=== PATIENT | female | born 1935 | race Caucasian/White ===

== ENCOUNTER 2017-10-30 08:44 | Emergency (ER) | payer MEDICARE, OTHER ==
[2017-10-30] MEDS ORDERED: Aspirin 81 MG Tab.Chew PO ONE (08:53)
[2017-10-30] MEDS: Nitroglycerin 0.4 MG Tab.SL SL ONE ×2 (09:23→09:35)
--- NOTE | 2017-10-30 09:32 | EDM.PDOC ---
ED HPI GENERAL MEDICAL PROBLEM - General Chief Complaint: Chest Pain Stated Complaint: CHEST PAIN Time Seen by Provider: 10/30/17 09:29 Source of Information: Reports: Patient History Limitations: Reports: No Limitations - History of Present Illness INITIAL COMMENTS - FREE TEXT/NARRATIVE: pt arrived with chest pain. Starting the epigastric area and extending into the chest. She came to [facility] to be with her . She does get alot of anxiety when she is in a hospital setting. She developed the chest pain after she got here and it has gotten progressively worse. Onset: Today, Sudden Duration: Hour(s): Location: Reports: Chest Associated Symptoms: Reports: Chest Pain, Other (pt did not atke her omeprazole at this point. ) Anterior Chest Pain Score (Numeric/FACES): 5 - Related Data Allergies Allergy/AdvReac Type Severity Reaction Status Date / Time metronidazole Allergy Cannot Verified 10/30/17 10:06 Remember Sulfa (Sulfonamide Allergy Cannot Verified 10/30/17 10:06 Antibiotics) Remember Home Meds: Home Meds Allopurinol [Zyloprim] 100 mg PO DAILY 11/23/13 [History] Aspirin [Adult Low Dose Aspirin EC] 1 tab PO DAILY 11/23/13 [History] Azeem Cit/D3/K/Mag Ox/Stron/Bor [Theracal D2000] 1 each PO BID 11/23/13 [History] Cholecalciferol (Vitamin D3) [Vitamin D3] 400 unit PO DAILY 11/23/13 [History] Ciclopirox [Loprox 0.77% Crm] 1 applicful TOP ASDIRECTED 11/23/13 [History] Estradiol [Vivelle-Dot] 0.75 mg TOP DAILY 11/23/13 [History] Estrogens, Conjugated [Premarin Vaginal] 1 applic VAG ASDIRECTED 11/23/13 [ History] Lidocaine 0.5% [Xylocaine-MPF 0.5%] 50 film TOP BID 11/23/13 [History] Lisinopril [Prinivil] 10 mg PO DAILY 11/23/13 [History] Multivitamin with Minerals [Multiple Vitamin] 1 tab PO DAILY 11/23/13 [History] Nystatin [Nystatin Ointment] 15 gm TOP DAILY 11/23/13 [History] [place]-3 Fatty Acids [[place]-3] 1 tab PO DAILY 11/23/13 [History] Omeprazole 20 mg PO DAILY 11/23/13 [History] Oxybutynin Chloride [Ditropan Xl] 5 mg PO BEDTIME 11/23/13 [History] Simvastatin [Zocor] 40 mg PO BEDTIME 11/23/13 [History] Triamcinolone Acetonide [Kenalog 0.1% Crm] 1 applic TOP BID 11/23/13 [History] metroNIDAZOLE [metroNIDAZOLE 0.75% Cream] 1 applic TOP DAILY 11/23/13 [History] Past Medical History HEENT History: Reports: Impaired Vision Cardiovascular History: Reports: High Cholesterol, Hypertension Gastrointestinal History: Reports: Diverticulosis 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: , Spontaneous Musculoskeletal History: Reports: Fracture, Osteoarthritis Other Musculoskeletal History: fx elbow Psychiatric History: Reports: Anxiety Endocrine/Metabolic History: Reports: Other (See Below) Other Endocrine/Metabolic History: partial thyroidectomy Hematologic History: Reports: Blood Transfusion(s) Oncologic (Cancer) History: Reports: Other (See Below) Other Oncologic History: skin ca Dermatologic History: Reports: Other (See Below) Other Dermatologic History: melanoma CA - Infectious Disease History Infectious Disease History: Reports: Chicken Pox, Measles, Mumps - Past Surgical History HEENT Surgical History: Reports: Cataract Surgery GI Surgical History: Reports: Colonoscopy, Other (See Below) Other GI Surgeries/Procedures: sigmoid resection Female Surgical History: Reports: Other (See Below) Other Female Surgeries/Procedures: partial hysterectomy Dermatological Surgical History: Reports: Skin Biopsy Social & Family History - Tobacco Use Smoking Status *Q: Former Smoker Years of Tobacco use: 18 Packs/Tins Daily: 1 Used Tobacco, but Quit: Yes Month Tobacco Last Used: quit 50 years ago Second Hand Smoke Exposure: No - Caffeine Use Caffeine Use: Reports: Coffee, Soda - Alcohol Use Days Per Week of Alcohol Use: 1 Number of Drinks Per Day: 1 Total Drinks Per Week: 1 - Recreational Drug Use Recreational Drug Use: No ED ROS GENERAL - Review of Systems Review Of Systems: See Below Constitutional: Reports: No Symptoms HEENT: Reports: No Symptoms Respiratory: Reports: No Symptoms Cardiovascular: Reports: Chest Pain, Other ( this started this am when her was found to have a facial deviation and she thought he had a stroke. ) Endocrine: Reports: No Symptoms GI/Abdominal: Reports: Other ( Pain in the mid chest area. ) : Reports: No Symptoms Musculoskeletal: Reports: No Symptoms Skin: Reports: No Symptoms Neurological: Reports: No Symptoms Psychiatric: Reports: No Symptoms ED EXAM, GENERAL - Physical Exam Exam: See Below Free Text/Narrative:: pt arrived with chest pain which developed when she found her to have facial deviation nd a possible stroke. The chest pain after arrival at the hosp got progressively worse. Exam Limited By: No Limitations General Appearance: Alert, Anxious, Moderate Distress, Other (pt is holding her chest and does appear quite uncomfortable. pupils are equal and reactive. ) Ears: Normal TMs Nose: Normal Inspection Throat/Mouth: Normal Inspection Head: Atraumatic Neck: Normal Inspection Respiratory/Chest: No Respiratory Distress Cardiovascular: Regular Rate, Rhythm, No Edema, Extra Beats, Other (pt is having frequent ventriculars. ) GI/Abdominal: Soft, Non-Tender Rectal (Female) Exam: Deferred Back Exam: Normal Inspection Extremities: Normal Inspection Neurological: Alert, Oriented, Normal Cognition Course - Vital Signs Last Recorded V/S: Last Vital Signs Temp 35.3 C 10/30/17 08:54 Pulse 86 10/30/17 08:54 Resp 18 10/30/17 08:54 BP 150/91 H 10/30/17 09:23 Pulse Ox - Orders/Labs/Meds Orders: Active Orders 24 hr Category Date Time Status EKG Documentation Completion [RC] ASDIRECTED Care 10/30/17 08:52 Active Chest 1V Frontal [CR] Stat Exams 10/30/17 10:03 Taken Nitroglycerin/D5W [Nitroglycerin 25 MG/D5W 250 ML] Med 10/30/17 10:00 Active 25 mg in 250 ml IV TITRATE EKG 12 Lead [EK] Routine Ther 10/30/17 08:52 Ordered Medication Orders Nitroglycerin/Dextrose (Nitroglycerin 25 Mg/D5w 250 Ml) 25 mg in 250 mls @ 6 mls/hr IV TITRATE ARACELIS; 10 MCG/MIN PRN Reason: Protocol Labs: Laboratory Tests 10/30/17 10/30/17 10/30/17 Range/Units 08:58 08:58 09:46 WBC 6.2 (4.5-11.0) K/uL RBC 4.50 (3.30-5.50) M/uL Hgb 14.1 (12.0-15.0) g/dL Hct 41.9 (36.0-48.0) % MCV 93 (80-98) fL MCH 31 (27-31) pg MCHC 34 (32-36) % Plt Count 214 (150-400) K/uL Neut % (Auto) 59 (36-66) % Lymph % (Auto) 30 (24-44) % [place] % (Auto) 9 H (2-6) % Eos % (Auto) 3 (2-4) % Baso % (Auto) 0 (0-1) % APTT 25.0 L (27.0-36.0) sec Sodium 144 (140-148) mmol/L Potassium 4.3 (3.6-5.2) mmol/L Chloride 108 (100-108) mmol/L Carbon Dioxide 26 (21-32) mmol/L Anion Gap 10.3 (5.0-14.0) mmol/L BUN 20 H (7-18) mg/dL Creatinine 1.3 H (0.6-1.0) mg/dL Est Cr Clr Drug Dosing 25.86 mL/min Estimated GFR (MDRD) 39 L (>60) Glucose 98 (74-106) mg/dL Calcium 9.0 (8.5-10.1) mg/dL Total Bilirubin 0.5 (0.2-1.0) mg/dL AST 30 (15-37) U/L ALT 31 (12-78) U/L Alkaline Phosphatase 64 (46-116) U/L Troponin I 1.034 H* (0.000-0.056) ng/mL Total Protein 7.1 (6.4-8.2) g/dL Albumin 3.5 (3.4-5.0) g/dL Globulin 3.6 H (2.3-3.5) g/dL Albumin/Globulin Ratio 1.0 L (1.2-2.2) Meds: Medications Generic Name Dose Route Start Last Admin Trade Name Freq PRN Reason Stop Dose Admin Nitroglycerin/Dextrose 25 mg in 250 mls @ 6 mls/hr 10/30/17 10:00 Nitroglycerin 25 Mg/D5w 250 Ml IV TITRATE ARACELIS Protocol 10 MCG/MIN Discontinued Medications Generic Name Dose Route Start Last Admin Trade Name Freq PRN Reason Stop Dose Admin Aspirin 324 mg 10/30/17 08:53 10/30/17 09:21 Aspirin PO 10/30/17 08:54 324 mg ONETIME ONE Administration Clopidogrel Bisulfate 600 mg 10/30/17 10:05 10/30/17 10:19 Plavix PO 10/30/17 10:06 600 mg ONETIME ONE Administration Famotidine 20 mg 10/30/17 10:14 Pepcid IVPUSH 10/30/17 10:15 ONETIME ONE Heparin Sodium (Porcine) 4,000 units 10/30/17 09:47 10/30/17 10:14 Heparin Sodium IVPUSH 10/30/17 09:48 4,000 units ONETIME ONE Administration Nitroglycerin 0.4 mg 10/30/17 08:53 10/30/17 09:23 Nitrostat SL 10/30/17 08:54 0.4 mg ONETIME ONE Administration - Re-Assessments/Exams Free Text/Narrative Re-Assessment/Exam: 10/30/17 10:15 pt had a left bundle branch block on th ekg which was present in the past. She was found to have a trop of 1.034. She had a creatnine of 1.3. 10/30/17 10:18 pt will be transfered to cardiology [facility] 10/30/17 10:23 Departure - Departure Time of Disposition: 10:16 Disposition: DC/Tfer to Acute Hospital 02 Reason for Transfer *Q: Primary PCI Indicated Condition: Fair Clinical Impression: Left bundle branch block, Elevated troponin, Chest pain, atypical Referrals: PCP,None [Primary Care Provider] - Forms: ED Department Discharge [facility] - My Orders Last 24 Hours: My Active Orders 10/30/17 08:52 EKG Documentation Completion [RC] ASDIRECTED EKG 12 Lead [EK] Routine 10/30/17 10:00 Nitroglycerin/D5W [Nitroglycerin 25 MG/D5W 250 ML] 25 mg in 250 ml IV TITRATE 10/30/17 10:03 Chest 1V Frontal [CR] Stat - Assessment/Plan Last 24 Hours: My Active Orders 10/30/17 08:52 EKG Documentation Completion [RC] ASDIRECTED EKG 12 Lead [EK] Routine 10/30/17 10:00 Nitroglycerin/D5W [Nitroglycerin 25 MG/D5W 250 ML] 25 mg in 250 ml IV TITRATE 10/30/17 10:03 Chest 1V Frontal [CR] Stat
[2017-10-30] MEDS ORDERED: Heparin Sodium 5,000 Units/ML Vial IVPUSH ONE (09:47)
[2017-10-30] MEDS ORDERED: Nitroglycerin/D5W 25 MG/250 ML BOTTLE IV SCH (10:00)
[2017-10-30] MEDS ORDERED: Clopidogrel 75 MG Tab PO ONE (10:05)
[2017-10-30] MEDS ORDERED: Famotidine 20 MG/2 ML SDV IVPUSH ONE (10:14)
--- NOTE | 2017-10-30 10:44 | CR ---
Heart size within normal limits. No pneumothorax. No focal consolidation. Right epicardial fat-pad.
[2017-10-30 10:46] VITALS: BP 122/76
== END 2017-10-30 11:04 ==
LOC: JP.ED 08:44
DX: I44.7 Left bundle-branch block, unspecified (principal); E78.00 Pure hypercholesterolemia, unspecified; I10 Essential (primary) hypertension; Z88.2 Allergy status to sulfonamides; Z88.8 Allergy status to other drugs, medicaments and biological substances; Z79.82 Long term (current) use of aspirin; Z79.899 Other long term (current) drug therapy
CPT/HCPCS: 36415; 71045; 80053; 84484; 85025; 85730; 93005; 96365; 96375; 99285; A9270; J1644; S0028

== ENCOUNTER 2017-12-09 11:48 | Emergency (ER) | payer MEDICARE, OTHER ==
--- NOTE | 2017-12-09 12:47 | EDM.PDOC ---
ED HPI GENERAL MEDICAL PROBLEM - General Chief Complaint: Cardiovascular Problem Stated Complaint: SHORTNESS OF BREATH Time Seen by Provider: 12/09/17 12:25 Source of Information: Reports: Patient, Family History Limitations: Reports: No Limitations - History of Present Illness INITIAL COMMENTS - FREE TEXT/NARRATIVE: 82-year-old female who had open heart surgery 1 month ago to "fix a hole in her heart", presents with increasing shortness of breath over the past several days. She did have a postoperative follow-up 2 weeks after her surgery and she was doing well, but over the past week has been worsening. She does have an appointment coming up for follow-up at [facility] where she received her surgery, in 2 days. She is having no chest pain, abdominal pain, nausea or vomiting, but is weak and has little activity tolerance without significant shortness of breath. She has also had an increased cough. She has not seen any active bleeding such as emesis or dark stools. She did receive a transfusion while in the hospital. Onset: Gradual (Over the past several days) Severity: Moderate Worsens with: Reports: Other (Activity increases her dyspnea), Movement Associated Symptoms: Reports: Cough, Loss of Appetite, Shortness of Breath, Weakness. Denies: Chest Pain, Fever/Chills, Headaches, Nausea/Vomiting - Related Data Allergies Allergy/AdvReac Type Severity Reaction Status Date / Time metronidazole Allergy Cannot Verified 10/30/17 10:06 Remember Sulfa (Sulfonamide Allergy Cannot Verified 10/30/17 10:06 Antibiotics) Remember Home Meds: Home Meds Allopurinol [Zyloprim] 100 mg PO DAILY 11/23/13 [History] Aspirin [Adult Low Dose Aspirin EC] 1 tab PO DAILY 11/23/13 [History] Azeem Cit/D3/K/Mag Ox/Stron/Bor [Theracal D2000] 1 each PO BID 11/23/13 [History] Cholecalciferol (Vitamin D3) [Vitamin D3] 400 unit PO DAILY 11/23/13 [History] Estradiol [Vivelle-Dot] 0.75 mg TOP DAILY 11/23/13 [History] Lidocaine 0.5% [Xylocaine-MPF 0.5%] 50 film TOP BID 11/23/13 [History] Multivitamin with Minerals [Multiple Vitamin] 1 tab PO DAILY 11/23/13 [History] Nystatin [Nystatin Ointment] 15 gm TOP DAILY 11/23/13 [History] [place]-3 Fatty Acids [[place]-3] 1 tab PO DAILY 11/23/13 [History] Omeprazole 20 mg PO DAILY 11/23/13 [History] Oxybutynin Chloride [Ditropan Xl] 5 mg PO BEDTIME 11/23/13 [History] Simvastatin [Zocor] 40 mg PO BEDTIME 11/23/13 [History] Triamcinolone Acetonide [Kenalog 0.1% Crm] 1 applic TOP BID 11/23/13 [History] metroNIDAZOLE [metroNIDAZOLE 0.75% Cream] 1 applic TOP DAILY 11/23/13 [History] Clopidogrel [Plavix] 75 mg PO DAILY 12/09/17 [History] Colchicine 0.6 mg PO DAILY 12/09/17 [History] Metoprolol Succinate [Toprol XL] 25 mg PO DAILY 12/09/17 [History] Past Medical History HEENT History: Reports: Impaired Vision Cardiovascular History: Reports: Heart Failure, High Cholesterol, Hypertension Gastrointestinal History: Reports: Diverticulosis [employer]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: , Spontaneous Musculoskeletal History: Reports: Fracture, Osteoarthritis Other Musculoskeletal History: fx elbow Psychiatric History: Reports: Anxiety Endocrine/Metabolic History: Reports: Other (See Below) Other Endocrine/Metabolic History: partial thyroidectomy Hematologic History: Reports: Blood Transfusion(s) Oncologic (Cancer) History: Reports: Other (See Below) Other Oncologic History: skin ca Dermatologic History: Reports: Other (See Below) Other Dermatologic History: melanoma CA - Infectious Disease History Infectious Disease History: Reports: Chicken Pox, Measles, Mumps - Past Surgical History HEENT Surgical History: Reports: Cataract Surgery GI Surgical History: Reports: Colonoscopy, Other (See Below) Other GI Surgeries/Procedures: sigmoid resection Female Surgical History: Reports: Other (See Below) Other Female Surgeries/Procedures: partial hysterectomy Dermatological Surgical History: Reports: Skin Biopsy Social & Family History - Tobacco Use Smoking Status *Q: Never Smoker Years of Tobacco use: 18 Packs/Tins Daily: 1 Used Tobacco, but Quit: Yes Month/Year Tobacco Last Used: quit 50 years ago Second Hand Smoke Exposure: No - Caffeine Use Caffeine Use: Reports: None - Alcohol Use Days Per Week of Alcohol Use: 1 Number of Drinks Per Day: 1 Total Drinks Per Week: 1 - Recreational Drug Use Recreational Drug Use: No ED ROS GENERAL - Review of Systems Review Of Systems: See Below Constitutional: Reports: Malaise, Weakness. Denies: Fever, Chills HEENT: Denies: Throat Pain, Vertigo Respiratory: Reports: Shortness of Breath, Cough. Denies: Sputum Cardiovascular: Reports: Lightheadedness. Denies: Chest Pain, Palpitations GI/Abdominal: Denies: Abdominal Pain, Nausea, Vomiting : Reports: No Symptoms Neurological: Reports: Dizziness, Weakness. Denies: Headache Psychiatric: Reports: No Symptoms ED EXAM, GENERAL - Physical Exam Exam: See Below Exam Limited By: No Limitations General Appearance: Alert, No Apparent Distress, Other (Fairly comfortable when sitting still) Eye Exam: Bilateral Eye: Other (Somewhat pale conjunctiva) Head: Atraumatic Respiratory/Chest: No Respiratory Distress, Wheezing (A few scattered expiratory wheezes are heard, with decreased breath sounds in the left base) Cardiovascular: Regular Rate, Rhythm, Tachycardia (Mild tachycardia). No: Extra Beats GI/Abdominal: Soft, Non-Tender Neurological: Alert, Oriented Psychiatric: Normal Affect, Normal Mood Skin Exam: Warm, Dry Course - Vital Signs Last Recorded V/S: Last Vital Signs Temp 98.6 F 12/09/17 12:12 Pulse 94 12/09/17 15:00 Resp 18 12/09/17 15:00 BP 122/81 12/09/17 15:00 Pulse Ox 96 12/09/17 15:00 - Orders/Labs/Meds Orders: Active Orders 24 hr Category Date Time Status US Guidance Thoracentesis NC [US] Stat Exams 12/09/17 13:31 Taken CULTURE BODY FLUID + SMEAR [RM] Routine Lab 12/09/17 14:15 Results CULTURE FUNGAL [MYC] Routine Lab 12/09/17 14:15 Received Labs: Laboratory Tests 12/09/17 12/09/17 12/09/17 Range/Units 12:47 12:47 14:15 WBC 5.2 (4.5-11.0) K/uL RBC 3.28 L (3.30-5.50) M/uL Hgb 9.5 L D (12.0-15.0) g/dL Hct 30.7 L (36.0-48.0) % MCV 94 (80-98) fL MCH 29 (27-31) pg MCHC 31 L (32-36) % Plt Count 198 (150-400) K/uL Neut % (Auto) 71 H (36-66) % Lymph % (Auto) 17 L (24-44) % [place] % (Auto) 11 H (2-6) % Eos % (Auto) 1 L (2-4) % Baso % (Auto) 0 (0-1) % Sodium 139 L (140-148) mmol/L Potassium 4.6 (3.6-5.2) mmol/L Chloride 104 (100-108) mmol/L Carbon Dioxide 25 (21-32) mmol/L Anion Gap 14.6 H (5.0-14.0) mmol/L BUN 20 H (7-18) mg/dL Creatinine 1.4 H (0.6-1.0) mg/dL Est Cr Clr Drug Dosing 23.38 mL/min Estimated GFR (MDRD) 36 L (>60) Glucose 98 (74-106) mg/dL Calcium 8.4 L (8.5-10.1) mg/dL Total Protein (6.4-8.2) g/dL Fluid Type Pleural fluid Fluid pH Fluid WBC /ul Fluid RBC /ul Fluid Diff Comment Fluid Mononuclear Cell % Fl Polymorphonucl Cell % Fluid Glucose 109 mg/dL Fluid LDH 217 IU/L Fluid Amylase 21 U/L 12/09/17 12/09/17 12/09/17 Range/Units 14:15 14:15 14:15 WBC (4.5-11.0) K/uL RBC (3.30-5.50) M/uL Hgb (12.0-15.0) g/dL Hct (36.0-48.0) % MCV (80-98) fL MCH (27-31) pg MCHC (32-36) % Plt Count (150-400) K/uL Neut % (Auto) (36-66) % Lymph % (Auto) (24-44) % [place] % (Auto) (2-6) % Eos % (Auto) (2-4) % Baso % (Auto) (0-1) % Sodium (140-148) mmol/L Potassium (3.6-5.2) mmol/L Chloride (100-108) mmol/L Carbon Dioxide (21-32) mmol/L Anion Gap (5.0-14.0) mmol/L BUN (7-18) mg/dL Creatinine (0.6-1.0) mg/dL Est Cr Clr Drug Dosing mL/min Estimated GFR (MDRD) (>60) Glucose (74-106) mg/dL Calcium (8.5-10.1) mg/dL Total Protein 2.8 L (6.4-8.2) g/dL Fluid Type Pleural fluid Pleural fluid Fluid pH 8.0 Fluid WBC 64 /ul Fluid RBC 81 /ul Fluid Diff Comment pleural fluid Fluid Mononuclear Cell 100 % Fl Polymorphonucl Cell 0 % Fluid Glucose mg/dL Fluid LDH IU/L Fluid Amylase U/L - Re-Assessments/Exams Free Text/Narrative Re-Assessment/Exam: 12/09/17 12:47 CBC, BMP, 2 view chest x-ray were obtained. 12/09/17 15:06 CBC revealed a hemoglobin of 9.2, chest x-ray showed a fairly large left pleural effusion. This is discussed with the cardiac surgery department at [facility], the hemoglobin is actually stable from discharge. Although the patient is to be seen in 2 days for postoperative follow-up, they did okay us doing a thoracentesis if the patient was uncomfortable. This was performed by Dr. Jones after an ultrasound localized effusion was marked. Over 800 mL of jenna fluid was removed and the patient did have improved breathing although she developed some discomfort. A postprocedure x-ray showed a markedly decreased effusion and no pneumothorax. She was given Tylenol and was ready to be discharged after another half hour. She will follow up in the [facility] at [facility] as scheduled. Return sooner if worsening or concerns. Departure - Departure Time of Disposition: 15:18 Disposition: Home, Self-Care 01 Condition: Fair Clinical Impression: Pleural effusion on left, Dyspnea on exertion Instructions: Pleural Effusion Referrals: Enrrique Melendez MD [Primary Care Provider] - Forms: ED Department Discharge Care Plan Goals: Increase activities slowly, and return if worsening or concerns. Otherwise diet as tolerated and follow up at [facility] on as scheduled. Take copies of x-rays and labs with you to your recheck. - My Orders Last 24 Hours: My Active Orders 12/09/17 13:31 US Guidance Thoracentesis NC [US] Stat 12/09/17 14:15 CULTURE BODY FLUID + SMEAR [RM] Routine CULTURE FUNGAL [MYC] Routine - Assessment/Plan Last 24 Hours: My Active Orders 12/09/17 13:31 US Guidance Thoracentesis NC [US] Stat 12/09/17 14:15 CULTURE BODY FLUID + SMEAR [RM] Routine CULTURE FUNGAL [MYC] Routine
--- NOTE | 2017-12-09 13:33 | CR ---
Chest 2V INDICATION: dyspnea FINDINGS: Comparison 10/30/2017. Interval development of a moderate left pleural effusion. New small ri ght pleural effusion. Hypertrophic changes thoracic spine. Chest otherwise negative.
--- NOTE | 2017-12-09 14:29 | CR ---
Chest 1V Frontal INDICATION: post thoracentesis FINDINGS: Comparison exam from earlier today. Interval decrease in size of the moderate left pleural effusion consistent with thoracentesis. No evidence for pneumothorax. Cardiac enlargement. Tiny right pleural effusion.
[2017-12-09 15:00] VITALS: BP 122/81
--- NOTE | 2017-12-12 10:49 | OR ---
DATE OF PROCEDURE: 12/09/2017 PREOPERATIVE DIAGNOSIS: Large left pleural effusion. POSTOPERATIVE DIAGNOSIS: Large left pleural effusion. PROCEDURE: Ultrasound-guided left thoracentesis. ANESTHESIA: Local. INDICATION FOR PROCEDURE: The patient is recently status post a cardiac procedure for VSD. This was apparently done by percutaneous approach. She does now present with a fairly large left pleural effusion and is somewhat symptomatic from a respiratory standpoint. Plan is to proceed with an ultrasound-guided thoracentesis. Potential risks including bleeding, infection, injury to the lung or vasculature during the procedure were gone over, as well as possible need for placement of the tube thoracostomy, should one of those complications occur, were gone over, and the patient wishes to proceed. DETAILS OF PROCEDURE: The patient was placed in sitting position in the emergency room. The left chest was then examined by ultrasound and a satisfactory location was marked in the left posterolateral chest wall per ultrasound. That area was then prepped and draped and anesthetized with 1% lidocaine. Thoracentesis catheter was then placed, and a total of 800 mL of quite clear serous fluid was obtained, which was sent for full microbiologic chemistries, cell count, differential, and cytology workup. At the end of the procedure, a small amount of air was evacuated, but the subsequent chest x-ray showed no evident pneumothorax, and the patient appeared with stable respiratory status and should be discharged home. The patient is going to be following up at [facility] with the Cardiology people this . Brian Joens MD /[id number]
== END 2017-12-09 15:26 | disposition home or self-care (01) ==
LOC: JP.ED 11:48
DX: J90 Pleural effusion, not elsewhere classified (principal); I11.0 Hypertensive heart disease with heart failure; I50.9 Heart failure, unspecified; E78.00 Pure hypercholesterolemia, unspecified; Z88.2 Allergy status to sulfonamides; Z88.8 Allergy status to other drugs, medicaments and biological substances; Z79.899 Other long term (current) drug therapy; Z87.891 Personal history of nicotine dependence
CPT/HCPCS: 36415; 71045; 71045-26; 71046; 71046-26; 80048; 82150; 82945; 83615; 83986; 84155; 85025; 87070; 87102; 87205; 88112; 88305; 89050; 99285-25

== ENCOUNTER 2020-05-13 17:14 | Emergency (ER) | payer MEDICARE, OTHER ==
--- NOTE | 2020-05-13 18:18 | EDM.PDOC ---
ED HPI GENERAL MEDICAL PROBLEM - General Chief Complaint: Chest Pain Stated Complaint: CHEST PAIN Time Seen by Provider: 05/13/20 17:50 Source of Information: Reports: Patient, Family, RN Notes Reviewed History Limitations: Reports: No Limitations - History of Present Illness INITIAL COMMENTS - FREE TEXT/NARRATIVE: Laila presents today with complaints of chest pain off and on for 3 days. She states the pain will come, stay for about 15 minutes then go away without any intervention. She states the pain comes on more with activity and feels like pressure on her chest. She reports she went to [employer], ate and had a raya making the pain slightly worse. She states she had flares of pain prior to eating at the restaurant. She denies any nausea, vomiting, diarrhea, constipation, change in bladder, fever, chills, cough, SOB, PND, orthopnea or other concerns. She denies any recent COVID19 exposure. - Related Data Allergies Allergy/AdvReac Type Severity Reaction Status Date / Time metronidazole Allergy Cannot Verified 05/13/20 17:36 Remember Sulfa (Sulfonamide Allergy Cannot Verified 05/13/20 17:36 Antibiotics) Remember Home Meds: Home Meds Aspirin [Adult Low Dose Aspirin EC] 81 mg PO DAILY 11/23/13 [History] Cholecalciferol (Vitamin D3) [Vitamin D3] 2,000 unit PO DAILY 11/23/13 [History] Multivitamin with Minerals [Multiple Vitamin] 1 tab PO DAILY 11/23/13 [History] Nystatin [Nystatin Ointment] 15 gm TOP DAILY 11/23/13 [History] Cromona-3 Fatty Acids [Cromona-3] 1 tab PO DAILY 11/23/13 [History] Omeprazole 40 mg PO DAILY 11/23/13 [History] Oxybutynin Chloride [Ditropan Xl] 15 mg PO BEDTIME 11/23/13 [History] Simvastatin [Zocor] 20 mg PO BEDTIME 11/23/13 [History] Triamcinolone Acetonide [Kenalog 0.1% Crm] 1 applic TOP BID 11/23/13 [History] allopurinoL [Zyloprim] 100 mg PO DAILY 11/23/13 [History] Metoprolol Succinate [Toprol XL] 100 mg PO DAILY 12/09/17 [History] Furosemide 20 mg PO DAILY PRN 11/08/19 [History] Losartan Potassium 25 mg PO DAILY 11/08/19 [History] Past Medical History HEENT History: Reports: Impaired Vision Cardiovascular History: Reports: Heart Failure, High Cholesterol, Hypertension Gastrointestinal History: Reports: Diverticulosis [employer] History: Reports: , Spontaneous Musculoskeletal History: Reports: Fracture, Osteoarthritis Other Musculoskeletal History: fx elbow Psychiatric History: Reports: Anxiety Endocrine/Metabolic History: Reports: Other (See Below) Other Endocrine/Metabolic History: partial thyroidectomy Hematologic History: Reports: Blood Transfusion(s) Oncologic (Cancer) History: Reports: Other (See Below) Other Oncologic History: skin ca Dermatologic History: Reports: Other (See Below) Other Dermatologic History: melanoma CA - Infectious Disease History Infectious Disease History: Reports: Chicken Pox, Measles, Mumps - Past Surgical History HEENT Surgical History: Reports: Cataract Surgery GI Surgical History: Reports: Colonoscopy, Other (See Below) Other GI Surgeries/Procedures: sigmoid resection Female Surgical History: Reports: Other (See Below) Other Female Surgeries/Procedures: partial hysterectomy Dermatological Surgical History: Reports: Skin Biopsy Social & Family History - Tobacco Use Smoking Status *Q: Never Smoker - Caffeine Use Caffeine Use: Reports: None ED ROS GENERAL - Review of Systems Review Of Systems: See Below Constitutional: Reports: No Symptoms HEENT: Reports: No Symptoms Respiratory: Reports: No Symptoms Cardiovascular: Reports: Chest Pain (off and on for about 15 minutes at a time, states it feels like pressure on the chest. ) Endocrine: Reports: No Symptoms GI/Abdominal: Reports: No Symptoms : Reports: No Symptoms Musculoskeletal: Reports: No Symptoms Skin: Reports: No Symptoms Neurological: Reports: No Symptoms Psychiatric: Reports: No Symptoms Hematologic/Lymphatic: Reports: No Symptoms Immunologic: Reports: No Symptoms ED EXAM, GENERAL - Physical Exam Exam: See Below Exam Limited By: No Limitations General Appearance: Alert, WD/WN, No Apparent Distress Eye Exam: Bilateral Eye: Normal Inspection, PERRL Ears: Normal External Exam, Normal Canal, Hearing Grossly Normal, Normal TMs Nose: Normal Inspection, Normal Mucosa, No Blood Throat/Mouth: Normal Inspection, Normal Lips, Normal Gums, Normal Oropharynx, Normal Voice, No Airway Compromise Head: Atraumatic, Normocephalic Neck: Normal Inspection, Supple, Non-Tender, Full Range of Motion. No: Lymphadenopathy (R), Lymphadenopathy (L) Respiratory/Chest: No Respiratory Distress, Lungs Clear, Normal Breath Sounds, No Accessory Muscle Use, Chest Non-Tender. No: Crackles, Rales, Rhonchi, Wheezing Cardiovascular: Normal Peripheral Pulses, Regular Rate, Rhythm, No Edema, No Gallop, No Murmur, No Rub, Other (No chest pain during triage or while in emergency room. ) Peripheral Pulses: 2+: Radial (L), Radial (R) GI/Abdominal: Normal Bowel Sounds, Soft, Non-Tender, No Organomegaly, No Distention, No Mass. No: Guarding, Rigid, Rebound, Tender, Hernia Back Exam: Normal Inspection, Full Range of Motion. No: CVA Tenderness (R), CVA Tenderness (L) Extremities: Normal Inspection, Normal Range of Motion, Non-Tender, No Pedal Edema, Normal Capillary Refill Neurological: Alert, Oriented, Normal Cognition, Normal Gait, No Motor/Sensory Deficits Psychiatric: Normal Affect, Normal Mood Skin Exam: Warm, Dry, Intact, Normal Color, No Rash Lymphatic: No Adenopathy EKG INTERPRETATION EKG Date: 05/13/20 Time: 17:26 Rhythm: NSR [place]: Normal P-Wave: Present QRS: Normal ST-T: Normal QT: Normal Comparison: No Change Course - Vital Signs Last Recorded V/S: Last Vital Signs Temp 36.8 C 05/13/20 21:24 Pulse 82 05/13/20 21:24 Resp 14 05/13/20 21:24 BP 158/77 H 05/13/20 21:24 Pulse Ox 100 05/13/20 21:24 - Orders/Labs/Meds Orders: Active Orders 24 hr Category Date Time Status Chest 1V Frontal [CR] Stat Exams 05/13/20 18:11 Taken EKG 12 Lead [EK] Routine Ther 05/13/20 17:44 Ordered Labs: Laboratory Tests 05/13/20 05/13/20 05/13/20 Range/Units 18:23 18:23 20:35 WBC 9.0 (4.5-11.0) K/uL RBC 4.26 (3.30-5.50) M/uL Hgb 13.0 D (12.0-15.0) g/dL Hct 40.7 (36.0-48.0) % MCV 96 (80-98) fL MCH 31 (27-31) pg MCHC 32 (32-36) % Plt Count 277 (150-400) K/uL Neut % (Auto) 57 (36-66) % Lymph % (Auto) 27 (24-44) % Bibb % (Auto) 13 H (2-6) % Eos % (Auto) 3 (2-4) % Baso % (Auto) 0 (0-1) % Sodium 137 L (140-148) mmol/L Potassium 4.9 (3.6-5.2) mmol/L Chloride 100 (100-108) mmol/L Carbon Dioxide 29 (21-32) mmol/L Anion Gap 12.9 (5.0-14.0) mmol/L BUN 27 H (7-18) mg/dL Creatinine 1.5 H (0.6-1.0) mg/dL Est Cr Clr Drug Dosing TNP Estimated GFR (MDRD) 33 L (>60) Glucose 90 (74-106) mg/dL Calcium 9.4 (8.5-10.1) mg/dL Troponin I < 0.017 < 0.017 (0.000-0.056) ng/mL Amylase 114 (25-115) U/L Lipase 412 H (73-393) U/L Patient lab work reviewed, noted elevated creatinine, decline in GFR, slightly elevated lipase. Patient clinic chart reviewed, noted chronic renal disease with renal function in same range for past 1.5 years. We will repeat troponin at 2030. Repeat troponin negative. Dr. Holloway notified of lab results, patient assessment. Patient reports more frequent dyspepsia that past few weeks. Patient will be discharged to home, eat a bland diet, low fat diet. Follow up with Dr. Melendez and rn clinical documentation specialist. Departure - Departure Time of Disposition: 21:15 Disposition: Home, Self-Care 01 Condition: Good Clinical Impression: Atypical chest pain, Dyspepsia Instructions: Nonspecific Chest Pain, Adult, [id number] Referrals: Enrrique Melendez MD [Primary Care Provider] - Forms: ED Department Discharge Additional Instructions: You have been evaluated and treated for atypical chest pain. Lab work, EKG, chest x-ray are negative for acute findings. Troponin x 2 normal at 0.017. Chronic renal disease Creat 1.5 GFR 33 Noted lipase 412-slightly elevated. Amylase normal. Eat a bland, low fat diet. Document food intake and any triggers of symptoms. You may use maalox as needed for stomach upset/pain to see if this helps when you have discomfort. Follow up with cardiology for recheck, stress test if needed. Follow up with primary for recheck of lipase, possible gallbladder US if indicated or any other needs. May also consider h pylori testing if indicated due to dyspepsia as appropriate. Take current medications as directed. Return for any worsening, issues or concerns. Sepsis Event Note (ED) - Focused Exam Vital Signs: Vital Signs Temp Pulse Resp BP Pulse Ox 05/13/20 21:24 36.8 C 82 14 158/77 H 100 05/13/20 18:29 36.8 C 82 14 158/77 H 100 05/13/20 18:27 75 12 130/69 100 05/13/20 17:57 81 13 159/69 H 100 - My Orders Last 24 Hours: My Active Orders 05/13/20 17:44 EKG 12 Lead [EK] Routine 05/13/20 18:11 Chest 1V Frontal [CR] Stat - Assessment/Plan Last 24 Hours: My Active Orders 05/13/20 17:44 EKG 12 Lead [EK] Routine 05/13/20 18:11 Chest 1V Frontal [CR] Stat Assessment:: Atypical chest pain Dyspepsia Plan: evaluated and treated for atypical chest pain. Lab work, EKG, chest x-ray are negative for acute findings. Troponin x 2 normal at 0.017. Chronic renal disease Creat 1.5 GFR 33 Noted lipase 412-slightly elevated. Amylase normal. Eat a bland, low fat diet. Document food intake and any triggers of symptoms. You may use maalox as needed for stomach upset/pain to see if this helps when you have discomfort. Follow up with cardiology for recheck, stress test if needed. Follow up with primary for recheck of lipase, possible gallbladder US if indicated or any other needs. May also consider h pylori testing if indicated due to dyspepsia as appropriate. Take current medications as directed. Return for any worsening, issues or concerns.
[2020-05-13 18:31] VITALS: BP 158/77; PULSE 82
--- NOTE | 2020-05-15 09:38 | CR ---
CHEST: Portable 05/13/2020 at 6:48 PM CLINICAL HISTORY:Chest pain COMPARISON:2018 FINDINGS: The heart size, pulmonary vascularity and hilar structures are normal. No infiltrate effusion or pneumothorax is seen. There are atherosclerotic changes in the aorta. There is a persistent small metallic radiopacity over the left chest IMPRESSION: No acute cardiopulmonary process.
== END 2020-05-13 21:32 | disposition home or self-care (01) ==
LOC: JP.ED 17:14
DX: R07.89 Other chest pain (principal); R10.13 Epigastric pain; I13.0 Hypertensive heart and chronic kidney disease with heart failure and stage 1 through stage 4 chronic kidney disease, or unspecified chronic kidney disease; I50.9 Heart failure, unspecified; N18.9 Chronic kidney disease, unspecified; Z88.2 Allergy status to sulfonamides; Z88.1 Allergy status to other antibiotic agents; Z79.82 Long term (current) use of aspirin; Z79.899 Other long term (current) drug therapy; Z90.710 Acquired absence of both cervix and uterus
CPT/HCPCS: 36415; 71045; 71045-26; 80048; 82150; 83690; 84484; 85025; 93005; 93010; 99284; 99285-25

== ENCOUNTER 2025-06-02 16:31 | Inpatient (IN) | payer MEDICARE, OTHER ==
[2025-06-02 17:31] LABS: PLATELET COUNT,PLT 293 K/uL (130-375); RED BLOOD CELL COUNT 3.83 M/uL (3.77-5.24); WHITE BLOOD CELL COUNT,WBC 8.4 K/uL (3.2-11.0)
[2025-06-02] MEDS: Ondansetron 4 MG/2 ML SDV IVPUSH ONE (17:34)
[2025-06-02] MEDS: Sodium Chloride 0.9% 10 ML Syringe FLUSH ONE (17:37)
[2025-06-02 17:52] LABS: ALANINE AMINOTRANSFERASE,ALT 14 U/L (12-78); ASPARTATE AMNIOTRANSFERASE,AST 22 U/L (15-37); BILIRUBIN TOTAL 0.7 mg/dL (0.2-1.0); BLOOD UREA NITROGEN,BUN 17 mg/dL (7-18); CARBON DIOXIDE,CO2 25 mmol/L (21-32); CHLORIDE,CL 91 mmol/L (100-108); CREATININE 1.4 mg/dL (0.6-1.0); EST CRCL DRUG DOSING (CG) 20.56 mL/min; ESTIMATED GFR 36 mL/min (>60); GLUCOSE RANDOM 109 mg/dL (74-106); POTASSIUM,K 4.3 mmol/L (3.6-5.2); PROTEIN TOTAL,TP 6.1 g/dL (6.4-8.2); SODIUM,NA 125 mmol/L (140-148)
[2025-06-02 17:53] LABS: A/G RATIO 0.9 (1.2-2.2)
[2025-06-02 17:57] LABS: LYMPHOCYTES ABSOLUTE MAN 1.68 K/uL (0.8-3.3); LYMPHOCYTES PERCENT MAN 20 % (24-44); MONOCYTES ABSOLUTE MAN 1.01 K/uL (0.20-0.90); MONOCYTES PERCENT MAN 12 % (2-6); NEUTROPHILS ABSOLUTE MAN 5.71 K/uL (1.0-7.6); SEG NEUTROPHILS PERCENT MAN 68 % (36-66)
[2025-06-02] MEDS: Iopamidol 612 MG/ML 100 ML Bottle IV ONE (18:32)
[2025-06-02] MEDS ORDERED: Ondansetron 4 MG Tab.DIS PO PRN (20:55)
[2025-06-02] MEDS ORDERED: Naloxone 0.4 MG/ML SDV IVPUSH PRN (20:55)
[2025-06-02] MEDS: Benzocaine/Cetylpyridinium/Menthol Lozenge MUCMEM PRN (21:36)
[2025-06-02] MEDS: Ondansetron 4 MG/2 ML SDV IV PRN (21:37)
[2025-06-03 05:44] LABS: PLATELET COUNT,PLT 332.0 K/uL (130-375); RED BLOOD CELL COUNT 3.84 M/uL (3.77-5.24); WHITE BLOOD CELL COUNT,WBC 7.7 K/uL (3.2-11.0)
[2025-06-03 05:59] LABS: BLOOD UREA NITROGEN,BUN 13.0 mg/dL (7-18); CARBON DIOXIDE,CO2 26.0 mmol/L (21-32); CHLORIDE,CL 95.0 mmol/L (100-108); CREATININE 1.4 mg/dL (0.6-1.0); EST CRCL DRUG DOSING (CG) 20.56 mL/min; ESTIMATED GFR 36.0 mL/min (>60); GLUCOSE RANDOM 140.0 mg/dL (74-106); POTASSIUM,K 4.0 mmol/L (3.6-5.2); SODIUM,NA 130.0 mmol/L (140-148)
[2025-06-03] MEDS: Magnesium Sulfate 2 GM/50 mL 2 GM in Premix Bag 1 BAG IV SCH (09:14)
[2025-06-03 14:03] VITALS: BP 124/48; PULSE 81
== END 2025-06-03 15:21 | DRG 389 ==
LOC: JP.ED 16:31 → JP.MS 19:36
PROVIDERS: ADMIT Internal Medicine; ATTEND Internal Medicine
DX: I11.0 Hypertensive heart disease with heart failure (principal); K91.30 Postprocedural intestinal obstruction, unspecified as to partial versus complete; E87.1 Hypo-osmolality and hyponatremia; K56.699 Other intestinal obstruction unspecified as to partial versus complete obstruction; I13.0 Hypertensive heart and chronic kidney disease with heart failure and stage 1 through stage 4 chronic kidney disease, or unspecified chronic kidney disease; E86.0 Dehydration; H54.7 Unspecified visual loss; I50.9 Heart failure, unspecified; E78.00 Pure hypercholesterolemia, unspecified; K21.9 Gastro-esophageal reflux disease without esophagitis; N18.9 Chronic kidney disease, unspecified; M19.90 Unspecified osteoarthritis, unspecified site; F41.9 Anxiety disorder, unspecified; I25.2 Old myocardial infarction; Z79.01 Long term (current) use of anticoagulants; Z85.43 Personal history of malignant neoplasm of ovary; Z88.8 Allergy status to other drugs, medicaments and biological substances; Z79.82 Long term (current) use of aspirin; Z79.899 Other long term (current) drug therapy; Z88.2 Allergy status to sulfonamides; Z85.820 Personal history of malignant melanoma of skin; Z98.49 Cataract extraction status, unspecified eye; Z90.710 Acquired absence of both cervix and uterus; Z98.890 Other specified postprocedural states
CPT/HCPCS: 36415; 43752; 71045; 71045-26; 74019; 74019-26; 74177; 80048; 80053; 83605; 83690; 83735; 85025; 85027; 86140; 96361; 96374; 99285-25; A9270-GY; J1171; J2405; J2470; J3475; J7030; J7121; Q9967